=== PATIENT | male | born 1960 | race Caucasian/White ===

== ENCOUNTER 2017-02-10 15:19 | Emergency (ER) | payer MEDICAID, OTHER ==
[2017-02-10 15:37] VITALS: BP 124/91
[2017-02-10] MEDS ORDERED: Diphtheria,Pertussis(Acell),Tetanus Vaccine 0.5 ML SDV IM ONE (16:03)
[2017-02-10] MEDS ORDERED: Lidocaine 1% 20 ML MDV INJECT ONE (16:04)
[2017-02-10] MEDS ORDERED: Bacitracin Oint 1 GM U/D Packet TOP ONE (16:04)
--- NOTE | 2017-02-10 16:06 | EDM.PDOC ---
ED HPI GENERAL MEDICAL PROBLEM - General Chief Complaint: Laceration Stated Complaint: LT FINGERS CUT Time Seen by Provider: 02/10/17 16:05 Source of Information: Reports: Patient, Family History Limitations: Reports: No limitations - History of Present Illness INITIAL COMMENTS - FREE TEXT/NARRATIVE: pt was working with a table saw and lost control. Onset: today Duration: Minutes: Location: Reports: upper extremity, left Associated Symptoms: Reports: denies other symptoms Left Hand Pain Score (Numeric/FACES): 7 - Related Data Allergies Allergy/AdvReac Type Severity Reaction Status Date / Time azithromycin Allergy Rash Verified 02/10/17 15:47 [From Zithromax Z-Lior] Home Meds: Home Meds Losartan/Hydrochlorothiazide [Losartan-HCTZ 100-25 MG] 1 each PO DAILY 11/27/13 [History] Past Medical History Cardiovascular History: Reports: Arrhythmia, Hypertension Musculoskeletal History: Reports: Other (see below) Other Musculoskeletal History: torn ligaments bilateral ankles Oncologic (Cancer) History: Reports: Other (see below) Other Oncologic History: skin Dermatologic History: Reports: Other (see below) Other Dermatologic History: skin cancer - Infectious Disease History Infectious Disease History: Reports: Chicken pox, Measles, Mumps - Past Surgical History HEENT Surgical History: Reports: Tonsillectomy GI Surgical History: Reports: Appendectomy Dermatological Surgical History: Reports: Skin biopsy Social & Family History - Tobacco Use Smoking Status *Q: Never Smoker Second Hand Smoke Exposure: No - Caffeine Use Caffeine Use: Reports: Coffee, Soda - Alcohol Use Days Per Week of Alcohol Use: 0 - Recreational Drug Use Recreational Drug Use: No ED ROS GENERAL - Review of Systems Review Of Systems: See Below Constitutional: Reports: no symptoms HEENT: Reports: No symptoms Respiratory: Reports: No Symptoms Cardiovascular: Reports: No symptoms Endocrine: Reports: no symptoms GI/Abdominal: Reports: No symptoms : Reports: no symptoms Musculoskeletal: Reports: other (laceration of the index, middle and ring finger. ) Skin: Reports: no symptoms ED EXAM, SKIN/RASH Exam: See Below Exam Limited By: No limitations General Appearance: alert Extremities: other ( Pt was using a table saw and he ended up with cutting the finger nail of the index finger and a small abrasion. The middle finger he has a soperficial laceration over the dorsal aspect of the middle finger. This is 5 cm in length. This did not involve tendons. He had full range of motion of the finger. The finger nail was cut partially off. The index finger he had a 1 /2 inch laceration at the tip and part of the nail was cut off. ) Course - Vital Signs Last Recorded V/S: Last Vital Signs Temp 36.6 C 02/10/17 15:49 Pulse 64 02/10/17 15:49 Resp 16 02/10/17 15:49 BP 124/91 H 02/10/17 15:49 Pulse Ox 100 02/10/17 15:49 - Orders/Labs/Meds Orders: Active Orders 24 hr Category Date Time Status Vaccines to be Administered [RC] PER UNIT ROUTINE Care 02/10/17 16:03 Active Fingers Second Digit Lt F1 [CR] Stat Exams 02/10/17 16:02 Taken Meds: Medications Discontinued Medications Generic Name Dose Route Start Last Admin Trade Name Freq PRN Reason Stop Dose Admin Bacitracin 1 dose 02/10/17 16:04 02/10/17 16:19 Bacitracin Oint 1 Gm TOP 02/10/17 16:05 1 dose ONETIME ONE Administration Diphtheria/Tetanus/Acell Pertussis 0.5 ml 02/10/17 16:03 02/10/17 16:18 Adacel IM 02/10/17 16:04 0.5 ml .ONCE ONE Administration Lidocaine HCl 20 ml 02/10/17 16:04 02/10/17 16:19 Xylocaine 1% INJECT 02/10/17 16:05 20 ml ONETIME ONE Administration - Re-Assessments/Exams Free Text/Narrative Re-Assessment/Exam: 02/10/17 17:12 This area was cleansed well and infiltrated with 1% lidocaine. There was no stitches on the ring finger . On the middle finger part of the skin was removed. This was brought together as much as possible. The nail was trimmed. Onr he index finger the laceration at the tip was closed with 5-0 prolene The nail was also trimmed. Departure - Departure Time of Disposition: 17:15 Disposition: Home, Self-Care 01 Condition: fair Clinical Impression: Laceration of left middle finger, Laceration of left index finger - Discharge Information Referrals: Fuentes Perera MD [Primary Care Provider] - Forms: ED Department Discharge Care Plan Goals: leave dressing on until thur, appt with the surgeon to follow up on the wound, elevate the hand. no work for the next 2 days, norco 5/325 q6h prn for pain, appt with surgeon on . keflex 500mg tid sr in 8 days - My Orders Last 24 Hours: My Active Orders 02/10/17 16:02 Fingers Second Digit Lt F1 [CR] Stat 02/10/17 16:03 Vaccines to be Administered [RC] PER UNIT ROUTINE - Assessment/Plan Last 24 Hours: My Active Orders 02/10/17 16:02 Fingers Second Digit Lt F1 [CR] Stat 02/10/17 16:03 Vaccines to be Administered [RC] PER UNIT ROUTINE
--- NOTE | 2017-02-11 08:58 | CR ---
Left second finger There is a soft tissue injury at the nail. The underlying bones are intact. There is no evidence of fracture or foreign body. Impression: 1. Soft tissue laceration without fracture.
== END 2017-02-10 17:49 | disposition home or self-care (01) ==
LOC: JP.ED 15:19
DX: S61.211A Laceration without foreign body of left index finger without damage to nail, initial encounter (principal); S61.213A Laceration without foreign body of left middle finger without damage to nail, initial encounter; I10 Essential (primary) hypertension; Z23 Encounter for immunization; Z79.899 Other long term (current) drug therapy; Z90.49 Acquired absence of other specified parts of digestive tract; Z98.890 Other specified postprocedural states; Z88.1 Allergy status to other antibiotic agents; W27.0XXA Contact with workbench tool, initial encounter
CPT/HCPCS: 12001; 73140; 90471; 90715; 99284; A4217

== ENCOUNTER 2017-02-15 20:32 | Emergency (ER) | payer MEDICAID, OTHER ==
[2017-02-15 20:43] VITALS: BP 140/71
--- NOTE | 2017-02-15 20:55 | EDM.PDOC ---
ED HPI GENERAL MEDICAL PROBLEM - General Chief Complaint: Wound Recheck Stated Complaint: L HAND INFECTION Time Seen by Provider: 02/15/17 20:42 Source of Information: Reports: Patient History Limitations: Reports: No Limitations - History of Present Illness INITIAL COMMENTS - FREE TEXT/NARRATIVE: Patient presents tonight for wound recheck. He states, "it doesn't look right" . He denies in crease in pain or discomfort. 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 He had x-ray, wound closure with use of keflex per Dr. Desir. Tino reports taking antibiotic as directed without complication. He also reports he continues to work and covers the wounds with sutures in antibiotic ointment and a dressing for protection. ) - Related Data Allergies Allergy/AdvReac Type Severity Reaction Status Date / Time azithromycin Allergy Rash Verified 02/10/17 15:47 [From Zithromax Z-Lior] Home Meds: Home Meds Losartan/Hydrochlorothiazide [Losartan-HCTZ 100-25 MG] 1 each PO DAILY 11/27/13 [History] Past Medical History Cardiovascular History: Reports: Arrhythmia, Hypertension Musculoskeletal History: Reports: Other (See Below) Other Musculoskeletal History: torn ligaments bilateral ankles Oncologic (Cancer) History: Reports: Other (See Below) Other Oncologic History: skin Dermatologic History: Reports: Other (See Below) Other Dermatologic History: skin cancer - Infectious Disease History Infectious Disease History: Reports: Chicken Pox, Measles, Mumps - Past Surgical History HEENT Surgical History: Reports: Tonsillectomy GI Surgical History: Reports: Appendectomy Dermatological Surgical History: Reports: Skin Biopsy Social & Family History - Tobacco Use Smoking Status *Q: Never Smoker Second Hand Smoke Exposure: No - Caffeine Use Caffeine Use: Reports: None - Alcohol Use Days Per Week of Alcohol Use: 0 - Recreational Drug Use Recreational Drug Use: No ED ROS GENERAL - Review of Systems Review Of Systems: See Below Constitutional: Reports: No Symptoms HEENT: Reports: No Symptoms Respiratory: Reports: No Symptoms Cardiovascular: Reports: No Symptoms Musculoskeletal: Reports: Other (Healing wounds to left hand at 2nd and 3rd fingers.) Skin: Reports: Wound, Change in Color, Other (Patient reports "my fingers don't look right, its kind of white". ). Denies: Pruritis, Rash, Erythema Neurological: Reports: No Symptoms ED EXAM, SKIN/RASH Exam: See Below Exam Limited By: No Limitations General Appearance: Alert, WD/WN, No Apparent Distress Respiratory/Chest: No Respiratory Distress, No Accessory Muscle Use, Chest Non- Tender Cardiovascular: Normal Peripheral Pulses, Regular Rate, Rhythm, No Edema Peripheral Pulses: 2+: Radial (L), Radial (R) Extremities: Normal Inspection, Normal Range of Motion, Non-Tender, No Pedal Edema, Normal Capillary Refill Neurological: Alert, Oriented, CN II-XII Intact, Normal Cognition, Normal Gait, No Motor/Sensory Deficits Skin: Warm, Dry, No Rash, Wound/Incision, Other (maceration noted to edges of wounds, suture repair. No drainage, induration or fluctuation noted. ROM intact, sensation intact. ). No: Erythema, Increased Warmth, Rash Location, Skin: Upper Extremity, Left Characteristics: No: Vesicular, Erythematous, Necrotic Associated features: Tenderness. No: Warmth, Induration, Weeping Lymphatic: No Adenopathy Course - Vital Signs Last Recorded V/S: Last Vital Signs Temp 37.2 C 02/15/17 20:43 Pulse 77 02/15/17 20:43 Resp 16 02/15/17 20:43 BP 140/71 02/15/17 20:43 Pulse Ox 96 02/15/17 20:43 - Re-Assessments/Exams Free Text/Narrative Re-Assessment/Exam: 02/15/17 21:03 Wound check per myself and Dr. Restrepo. Patient reports large amount of antibiotic ointment use with dressing to keep from sticking and catching while he works. Departure - Departure Time of Disposition: 20:50 Disposition: Home, Self-Care 01 Condition: good Clinical Impression: Encounter for wound care - Discharge Information Instructions: Wound Care Referrals: Fuentes Perera MD [Primary Care Provider] - Percy Gerber [Consulting Physician] - Forms: ED Department Discharge Additional Instructions: Use less antibiotic ointment to laceration. Put thin layer of ointment to wounds once daily. Keep area clean and dry. Watch for signs and symptoms of infection or worsening. Keep follow up with Dr. Linda Gerber as scheduled.
== END 2017-02-15 21:07 | disposition home or self-care (01) ==
LOC: JP.ED 20:32
DX: S61.211D Laceration without foreign body of left index finger without damage to nail, subsequent encounter (principal); S61.213D Laceration without foreign body of left middle finger without damage to nail, subsequent encounter; I10 Essential (primary) hypertension; Z85.828 Personal history of other malignant neoplasm of skin; Z90.49 Acquired absence of other specified parts of digestive tract; Z98.890 Other specified postprocedural states; Z79.899 Other long term (current) drug therapy; Z88.1 Allergy status to other antibiotic agents
CPT/HCPCS: 99281; 99283

== ENCOUNTER 2017-07-25 07:02 | Day surgery (SDC) | payer SELFPAY ==
[~2017-07-25 07:02] MED LIST: Acetaminophen 500 MG Tab PO ONE; Bupivacaine 0.5% 50 ML MDV ONE; Celecoxib 200 MG Cap PO ONE; Dextrose 5%-Lactated Ringers 1,000 ML IV SCH; Lidocaine 1% with EPINEPHrine 1:100,000 50 ML MDV ONE; Midazolam 1 MG/ML 2 ML SDV ONE; Propofol 200 MG/20 ML SDV ONE; fentaNYL 100 MCG/2 ML SDV ONE
[2017-07-25] MEDS ORDERED: ceFAZolin 2 GM in Premix Bag 1 BAG IV ONE (08:30)
[2017-07-25] MEDS ORDERED: Neostigmine Methylsulfate 1 MG/ML 5 ML Syringe ONE (08:39)
[2017-07-25] MEDS ORDERED: Dexamethasone 4 MG/ML SDV ONE (08:39)
[2017-07-25] MEDS ORDERED: Rocuronium 50 MG/5 ML Vial ONE (08:39)
[2017-07-25] MEDS ORDERED: Ondansetron 4 MG/2 ML SDV ONE (08:39)
[2017-07-25] MEDS ORDERED: Succinylcholine 200 MG/10 ML MDV ONE (08:39)
[2017-07-25] MEDS ORDERED: Glycopyrrolate 0.2 MG/ML 5 ML MDV ONE (08:39)
[2017-07-25] MEDS ORDERED: fentaNYL 250 MCG/5 ML SDV ONE (08:40)
[2017-07-25] MEDS ORDERED: Bupivacaine 0.5%/EPINEPHrine 1:200,000 50 ML MDV ONE (09:15)
[2017-07-25] MEDS ORDERED: fentaNYL 100 MCG/2 ML SDV ONE (09:57)
[2017-07-25] MEDS ORDERED: Ketorolac 60 MG/2 ML SDV ONE (10:17)
[2017-07-25] MEDS ORDERED: Ondansetron 4 MG/2 ML SDV IVPUSH PRN (12:05)
[2017-07-25] MEDS: Acetaminophen/oxyCODONE 325-5 MG Tab PO PRN ×2 (12:10→16:52)
[2017-07-25] MEDS ORDERED: Dextrose 5%-Lactated Ringers 1,000 ML IV SCH (12:15)
[2017-07-25 14:45] VITALS: BP 139/79
[2017-07-25] MEDS ORDERED: Ibuprofen 600 MG Tab PO SCH (16:00)
--- NOTE | 2017-07-27 13:51 | OR ---
DATE OF PROCEDURE: 07/25/2017 PREOPERATIVE DIAGNOSIS: Bilateral inguinal hernias. POSTOPERATIVE DIAGNOSES: 1. Incarcerated left inguinal hernia. 2. Incarcerated right inguinal hernia. 3. Ilioinguinal nerves at risk for entrapment by scar and associated postoperative neuropathic pain. OPERATIVE PROCEDURES: 1. Open repair of incarcerated left inguinal hernia with mesh (61539). 2. Open repair of non-incarcerated right inguinal hernia with mesh ([id number]). 3. Bilateral division of ilioinguinal nerves (69097). ANESTHESIA: General. INDICATION FOR PROCEDURE: This is a 56-year-old male presenting with bilateral inguinal hernias, particularly on the right side, this has been increasingly symptomatic. Plan is to proceed with bilateral inguinal hernia repair with mesh plug technique. Potential risks of the procedure including bleeding, infection, injury to underlying viscera, problems with the hernias recurring or mesh becoming infected, as well as possible chronic pain following the hernia repair were all gone over, and the patient wishes to proceed. The issue of the ilioinguinal nerves becoming entrapped by scar associated with the repair and mesh placement were gone over and the fact that we generally will divide these to limit risk of postoperative neuropathic pain, resulting in a small area of anesthesia in the groin area was gone over and likewise the patient wishes to proceed. DETAILS OF PROCEDURE: The patient was taken to the operating room and placed in a supine position. After general endotracheal anesthesia was induced, the abdomen and groin areas were prepped and draped. Beginning on the right side, a standard right inguinal incision was made and carried down through the skin and subcutaneous tissue and through the external oblique aponeurosis. The bladder flaps were raised superiorly and inferiorly, and the cord structures were mobilized upward. The patient was noted to have a quite broad-based hernia here with a large indirect component and smaller direct component. Once the indirect component was dissected off the cord structures, this was turned inward and the transversalis fascia over the direct portion of the hernia was then incised. An extra-large mesh plug was placed into the direct defect and, at this point, affixed to the Tai ligament with titanium tacking screws and then to the underside of the conjoint tendon medially, superiorly, and laterally with horizontal mattress sutures of 0 Vicryl stitch. A medium mesh plug was then placed through the indirect defect, and this was fixed to the overlying conjoined tendon with the horizontal mattress sutures of 0 Vicryl stitch as well. This appeared to adequately occlude both sides of the herniation. The ilioinguinal nerve was running directly right where the flat portion of the mesh plug system will be placed, therefore, this was divided at the lateral aspect of the incision to minimize postoperative neuropathic pain. The flat portion of the mesh plug system was then placed across the inguinal floor, fixed to pubic tubercle with titanium tacking screw and then sutured lateral to the cord structures with a 3-0 Vicryl stitch. Over this, the external oblique aponeurosis approximated with a 4-0 Vicryl stitch as was the Carine's fascia, and the skin was closed with sharlene. Attention was then taken to the left side. A mirror-image type incision was then made and carried down through the skin and subcutaneous tissue and external oblique aponeurosis. Similar dissection was undertaken on this side. The left side actually had an incarcerated component to the hernia consisting of some omentum, which was densely adherent to the hernia sac. The latter was freed up. The hernia sac was dissected free and returned back to the intraperitoneal location. The hernia on this side was repaired with a single extra-large mesh plug. This was placed through the indirect defect and affixed to the Tai's ligament medially and inferiorly with titanium tacking screws and fixed to tendon medially, superiorly, and laterally with horizontal mattress sutures of 0 Vicryl stitch as well. Likewise, at that site the ilioinguinal nerve passed over the flat portion of the mesh plug system was then likewise placed over the inguinal floor and fixed to the pubic tubercle with a tacking screw and fixed laterally with 3-0 Vicryl stitch. Closure of the hernia was as per the right side and dressing was applied. The patient was taken to the recovery room in a satisfactory condition. There were no evident complications. Alfie Gerber MD /[id number]
== END 2017-07-25 17:25 | disposition home or self-care (01) ==
LOC: JP.SDS 07:02 → JP.MS 10:40 → JP.SDS 17:25
PROVIDERS: ATTEND Surgery
DX: K40.30 Unilateral inguinal hernia, with obstruction, without gangrene, not specified as recurrent (principal); K40.90 Unilateral inguinal hernia, without obstruction or gangrene, not specified as recurrent; G57.83 Other specified mononeuropathies of bilateral lower limbs; I10 Essential (primary) hypertension; Z88.1 Allergy status to other antibiotic agents; Z79.899 Other long term (current) drug therapy
CPT/HCPCS: 36415; 49505; 49507; 64772; 85027; A9270; C1781; J0330; J0690; J1100; J1885; J2250; J2405; J2704; J2710; J3010; J7042

== ENCOUNTER 2017-07-27 21:35 | Emergency (ER) | payer SELFPAY ==
[2017-07-27 21:56] VITALS: BP 124/73
--- NOTE | 2017-07-27 22:23 | EDM.PDOC ---
ED HPI GENERAL MEDICAL PROBLEM - General Chief Complaint: Gastrointestinal Problem Stated Complaint: SURGERY NO BOWEL MOVEMENTS Time Seen by Provider: 07/27/17 22:10 Source of Information: Reports: Patient, Family, RN Notes Reviewed History Limitations: Reports: No Limitations - History of Present Illness INITIAL COMMENTS - FREE TEXT/NARRATIVE: 56-year-old gentleman presents emergency department day complaint of abdominal distention, he is postop day 2 from bilateral hernia repair he has been using Percocet as needed for pain control however he is trying to wean himself off that he is not had a bowel movement since surgery he feels the urge but however is afraid to push secondary to increased pain in his pelvic region, he is passing gas Lower Abdominal Pain Score (Numeric/FACES): 7 - Related Data Allergies Allergy/AdvReac Type Severity Reaction Status Date / Time azithromycin Allergy Rash Verified 07/27/17 22:04 [From Zithromax Z-Lior] Home Meds: Home Meds Losartan/Hydrochlorothiazide [Losartan-HCTZ 100-25 MG] 1 each PO DAILY 11/27/13 [History] Acetaminophen [Tylenol Extra Strength] 1,000 mg PO ASDIRECTED 07/24/17 [History] Ibuprofen [Motrin] 600 mg PO ASDIRECTED PRN 07/24/17 [History] Acetaminophen/oxyCODONE [Percocet 325-5 MG] 1 - 2 each PO Q4H PRN #20 tab [Rx] Sennosides [Senna] 3 tab PO BID 07/27/17 [History] Past Medical History HEENT History: Reports: Impaired Vision Cardiovascular History: Reports: Arrhythmia, Hypertension Musculoskeletal History: Reports: Other (See Below) Other Musculoskeletal History: torn ligaments bilateral ankles Oncologic (Cancer) History: Reports: Other (See Below) Other Oncologic History: skin Dermatologic History: Reports: Other (See Below) Other Dermatologic History: skin cancer - Infectious Disease History Infectious Disease History: Reports: C-Difficile, Measles, Mumps - Past Surgical History HEENT Surgical History: Reports: Adenoidectomy, Tonsillectomy GI Surgical History: Reports: Appendectomy, Hernia, Abdominal Dermatological Surgical History: Reports: Skin Biopsy Social & Family History - Family History Family Medical History: Noncontributory - Tobacco Use Smoking Status *Q: Never Smoker Second Hand Smoke Exposure: No - Caffeine Use Caffeine Use: Reports: Coffee, Energy Drinks, Soda - Alcohol Use Days Per Week of Alcohol Use: 0 - Recreational Drug Use Recreational Drug Use: No ED ROS GENERAL - Review of Systems Review Of Systems: See Below Constitutional: Denies: Fever (mom), Chills HEENT: Reports: No Symptoms Respiratory: Reports: No Symptoms Cardiovascular: Reports: Dyspnea on Exertion GI/Abdominal: Reports: Abdominal Pain, Distension, Flatus. Denies: Nausea, Vomiting : Reports: No Symptoms Musculoskeletal: Reports: No Symptoms Skin: Reports: No Symptoms Neurological: Reports: No Symptoms ED EXAM, GI/ABD - Physical Exam Exam: See Below Exam Limited By: No Limitations General Appearance: Alert, WD/WN, No Apparent Distress Respiratory/Chest: No Respiratory Distress, Lungs Clear, Normal Breath Sounds, No Accessory Muscle Use Cardiovascular: Regular Rate, Rhythm, No Murmur GI/Abdominal Exam: Normal Bowel Sounds, Soft, Other (Distention, surgical wounds clean dry intact) Course - Vital Signs Last Recorded V/S: Last Vital Signs Temp 98.6 F 07/27/17 22:03 Pulse 84 07/27/17 22:03 Resp 20 07/27/17 22:03 BP 124/73 07/27/17 22:03 Pulse Ox 95 07/27/17 22:03 - Orders/Labs/Meds Orders: Active Orders 24 hr Category Date Time Status Abdomen 2V AP Flat Upright [CR] Stat Exams 07/27/17 22:20 Taken Labs: Laboratory Tests 07/27/17 07/27/17 Range/Units 22:30 22:30 WBC 8.6 (4.5-11.0) K/uL RBC 4.60 (4.30-5.90) M/uL Hgb 14.6 (12.0-15.0) g/dL Hct 42.2 (40.0-54.0) % MCV 92 (80-98) fL MCH 32 H (27-31) pg MCHC 35 (32-36) % Plt Count 318 (150-400) K/uL Neut % (Auto) 72 H (36-66) % Lymph % (Auto) 16 L (24-44) % [place] % (Auto) 10 H (2-6) % Eos % (Auto) 2 (2-4) % Baso % (Auto) 0 (0-1) % Sodium 138 L (140-148) mmol/L Potassium 3.7 (3.6-5.2) mmol/L Chloride 101 (100-108) mmol/L Carbon Dioxide 32 (21-32) mmol/L Anion Gap 8.7 (5.0-14.0) mmol/L BUN 11 (7-18) mg/dL Creatinine 0.9 (0.8-1.3) mg/dL Est Cr Clr Drug Dosing 98.20 mL/min Estimated GFR (MDRD) > 60 (>60) Glucose 103 (74-106) mg/dL Calcium 9.3 (8.5-10.1) mg/dL Total Bilirubin 0.6 (0.2-1.0) mg/dL AST 25 (15-37) U/L ALT 35 (12-78) U/L Alkaline Phosphatase 105 (46-116) U/L Total Protein 7.1 (6.4-8.2) g/dL Albumin 3.7 (3.4-5.0) g/dL Globulin 3.4 (2.3-3.5) g/dL Albumin/Globulin Ratio 1.1 L (1.2-2.2) Departure - Departure Time of Disposition: 23:40 Disposition: Home, Self-Care 01 Condition: Good Clinical Impression: Ileus, postoperative - Discharge Information Referrals: Fuentes Perera MD [Primary Care Provider] - Forms: ED Department Discharge Additional Instructions: Go back to clear liquids, try MiraLAX one capful per day until loose stools, try to use as few as narcotics as possible keep your regular follow-up appointment with general surgery - My Orders Last 24 Hours: My Active Orders 07/27/17 22:20 Abdomen 2V AP Flat Upright [CR] Stat - Assessment/Plan Last 24 Hours: My Active Orders 07/27/17 22:20 Abdomen 2V AP Flat Upright [CR] Stat Plan: Assessment Acuity = acute Site and laterality = ileus postop day 2 bilateral hernia repair Etiology = unclear etiology Manifestations = none Location of injury = Home Lab values = CBC, CMP unremarkable x-ray shows dilated loops of bowel consistent with ileus official read radiologist pending Plan Called discussed case with Dr. Gerber recommend try MiraLAX try and reduce the narcotics best possible and go back to clear liquids keep regular follow-up appointment with general surgery Patient was in agreement with the plan all questions were answered, they were instructed to return to the emergency department or call for worsening symptoms. This note was dictated using [employer] voice recognition software please call with any questions.
--- NOTE | 2017-07-28 09:43 | CR ---
Abdomen 2V AP Flat Upright INDICATION: Distention postop FINDINGS: Loops of minimally dilated small bowel with air-fluid levels. Moderate gas and stool in the colon. No evidence for free air. Findings most consistent with ileus.
== END 2017-07-27 23:56 | disposition home or self-care (01) ==
LOC: JP.ED 21:35
DX: K56.7 Ileus, unspecified (principal); Z79.899 Other long term (current) drug therapy
CPT/HCPCS: 36415; 74020; 74020-26; 80053; 85025; 99283; 99284

== ENCOUNTER 2021-03-22 17:15 | Emergency (ER) | payer MEDICAID ==
[2021-03-22] MEDS ORDERED: Sodium Chloride 0.9% 10 ML Syringe FLUSH PRN (17:29)
[2021-03-22] MEDS ORDERED: ceFAZolin 1 GM in Premix Bag 1 BAG IV ONE (17:31)
[2021-03-22] MEDS ORDERED: Morphine 4 MG/ML Syringe IVPUSH ONE ×2 (17:32→19:42)
[2021-03-22] MEDS ORDERED: Tetracaine HCl/PF 0.5% 4 ML Bottle EYERT ONE (17:34)
--- NOTE | 2021-03-22 18:00 | EDM.PDOC ---
ED HPI GENERAL MEDICAL PROBLEM - General Chief Complaint: Eye Problems Stated Complaint: RT EYE INJURY Time Seen by Provider: 03/22/21 17:30 Source of Information: Reports: Patient History Limitations: Reports: No Limitations - History of Present Illness INITIAL COMMENTS - FREE TEXT/NARRATIVE: Tino is a 60 year old male whom was brought to [place] ER by family due to right eye injury. Injury occurred 20 minutes before arrive while milking goat. Goat was on the lift and bucked resulting in head striking patient's right kunal- orbital area with horn and head. Patient is unsure if eye is injured and he has not tried to use with injured eye. brought him to ER for evaluation. Last tetanus was 2017 Right Eye Pain Score (Numeric/FACES): 5 - Related Data Allergies Allergy/AdvReac Type Severity Reaction Status Date / Time azithromycin Allergy Rash Verified 03/22/21 17:32 [From Zithromax Z-Lior] Home Meds: Home Meds Acetaminophen [Tylenol Extra Strength] 1,000 mg PO ASDIRECTED PRN 07/24/17 [History] Cyanocobalamin (Vitamin B-12) [Vitamin B-12] 1 cap PO DAILY 06/07/20 [History] Echinacea 250 mg PO DAILY 06/07/20 [History] Fish Oil/Borage/Flax/Om3,6,9 1 [[place] 3-6-9 Complex Softgel] 1 cap PO DAILY 06/07/20 [History] Glucosam/Chond/Collagen/Hyalur [Glucosamine Chondroitin] 2 cap PO DAILY 06/07/20 [History] Ibuprofen [Motrin] 600 mg PO QID PRN 06/07/20 [History] Multivitamin 1 tab PO DAILY 06/07/20 [History] Valsartan/Hydrochlorothiazide [Valsartan-Hctz 160-25 mg Tab] 1 tab PO DAILY 06/07/20 [History] Past Medical History HEENT History: Reports: Impaired Vision Cardiovascular History: Reports: Arrhythmia, Hypertension Respiratory History: Reports: Pneumonia, Recurrent Gastrointestinal History: Reports: GERD Musculoskeletal History: Reports: Other (See Below) Other Musculoskeletal History: torn ligaments bilateral ankles Neurological History: Reports: Migraines Oncologic (Cancer) History: Reports: Basal Cell Carcinoma, Other (See Below) Other Oncologic History: skin Dermatologic History: Reports: Other (See Below) Other Dermatologic History: skin cancer - Infectious Disease History Infectious Disease History: Reports: Chicken Pox, Measles, Mumps - Past Surgical History Head Surgeries/Procedures: Reports: None HEENT Surgical History: Reports: Adenoidectomy, Tonsillectomy GI Surgical History: Reports: Appendectomy, EGD, Hernia, Inguinal, Estrella Fundoplication Dermatological Surgical History: Reports: Skin Biopsy Social & Family History - Family History Family Medical History: No Pertinent Family History HEENT: Reports: Cataract, Glaucoma, Hearing Impairment, Impaired Vision Cardiac: Reports: Aneurysm, Blood Clots/VTE/DVT, MD Respiratory: Reports: Asthma, COPD Neurological: Reports: Dementia, Migraines Psychiatric: Reports: Anxiety Hematologic: Reports: Other (See Below) Other Hematologic Family History: Factor 5 Oncologic: Reports: Other (See Below) Other Oncologic Family History: testicular - Tobacco Use Tobacco Use Status *Q: Never Tobacco User - Caffeine Use Caffeine Use: Reports: Coffee, Soda Caffeine Use Comment: 8 cups/daily - Recreational Drug Use Recreational Drug Use: No ED ROS GENERAL - Review of Systems Review Of Systems: Comprehensive ROS is negative, except as noted in HPI. ED EXAM GENERAL W FULL EYE - Physical Exam Exam: See Below Exam Limited By: No Limitations General Appearance: Alert, WD/WN, No Apparent Distress, Moderate Distress Eye Exam: Right Eye: Abnormal EOM, Abnormal Pupil (small ), Bleeding (obvious laceration right upper eyelid full thickness with flap), Corneal Abrasion, Globe Laceration (nasal conjunctival laceration (globe spared) ), Periorbital Changes, Vision Changes, Left Eye: Normal Inspection Eyelids: Right: Normal Appearance (full thickness laceration ), Subcutaneous Emphysema (nasal area) Conjunctiva & Sclera: Right: Subconjuctival Hemorrhage Extraocular Movements: Bilateral: Intact Pupillary Reaction: Right: Sluggish Comments: numbness inferior orbital area (injury to inferior orbital nerve likely) Ears: Hearing Grossly Normal Nose: Normal Inspection Throat/Mouth: Normal Voice, No Airway Compromise Neck: Normal Inspection, Full Range of Motion Respiratory/Chest: No Respiratory Distress, Lungs Clear, Normal Breath Sounds Cardiovascular: Normal Peripheral Pulses, Regular Rate, Rhythm GI/Abdominal: Normal Bowel Sounds Back Exam: Normal Inspection, Full Range of Motion Extremities: Normal Inspection, Normal Range of Motion Neurological: Alert, Oriented, CN II-XII Intact, Normal Cognition Psychiatric: Normal Affect, Normal Mood Skin Exam: Warm, Dry, Intact, Normal Color, No Rash Course - Vital Signs Last Recorded V/S: Last Vital Signs Temp 36.6 C 03/22/21 17:31 Pulse 79 03/22/21 17:31 Resp 22 H 03/22/21 17:31 BP 173/87 H 03/22/21 17:31 Pulse Ox 100 03/22/21 17:31 - Orders/Labs/Meds Orders: Active Orders 24 hr Category Date Time Status Peripheral IV Care [RC] . DIRECTED Care 03/22/21 17:30 Active NPO Now [Nothing per Oral Now Diet] [DIET] Diet 03/23/21 Breakfast Active Max Facial Sinus wo Cont [CT] Stat Exams 03/22/21 17:33 Taken Sodium Chloride 0.9% [Normal Saline] 1,000 ml Med 03/22/21 19:00 Active IV ASDIRECTED Sodium Chloride 0.9% [Saline Flush] Med 03/22/21 17:29 Active 10 ml FLUSH ASDIRECTED PRN Peripheral IV Insertion Adult [OM.PC] Urgent Oth 03/22/21 17:29 Ordered Medication Orders Sodium Chloride (Normal Saline) 1,000 mls @ 500 mls/hr IV ASDIRECTED EMILY Sodium Chloride (Sodium Chloride 0.9% 10 Ml Syringe) 10 ml FLUSH ASDIRECTED PRN PRN Reason: Keep Vein Open Labs: Laboratory Tests 03/22/21 03/22/21 Range/Units 17:50 17:50 WBC 7.0 (4.5-11.0) K/uL RBC 4.45 (4.30-5.90) M/uL Hgb 14.0 (12.0-15.0) g/dL Hct 40.3 (40.0-54.0) % MCV 91 (80-98) fL MCH 32 H (27-31) pg MCHC 35 (32-36) % Plt Count 337 (150-400) K/uL Neut % (Auto) 53.9 (36-66) % Lymph % (Auto) 34.0 (24-44) % Andrews % (Auto) 8.7 H (2-6) % Eos % (Auto) 3.0 (2-4) % Baso % (Auto) 0.4 (0-1) % Sodium 142 (140-148) mmol/L Potassium 3.0 L (3.6-5.2) mmol/L Chloride 105 (100-108) mmol/L Carbon Dioxide 27 (21-32) mmol/L Anion Gap 13.0 (5.0-14.0) mmol/L BUN 14 D (7-18) mg/dL Creatinine 1.4 H D (0.8-1.3) mg/dL Est Cr Clr Drug Dosing 61.83 mL/min Estimated GFR (MDRD) 51 L (>60) Glucose 115 H (74-106) mg/dL Calcium 8.4 L (8.5-10.1) mg/dL Total Bilirubin 0.4 D (0.2-1.0) mg/dL AST 17 (15-37) U/L ALT 29 (12-78) U/L Alkaline Phosphatase 107 (46-116) U/L Total Protein 6.2 L (6.4-8.2) g/dL Albumin 3.5 (3.4-5.0) g/dL Globulin 2.7 (2.3-3.5) g/dL Albumin/Globulin Ratio 1.3 (1.2-2.2) Meds: Medications Generic Name Dose Route Start Last Admin Trade Name Freq PRN Reason Stop Dose Admin Sodium Chloride 1,000 mls @ 500 mls/hr 03/22/21 19:00 Normal Saline IV ASDIRECTED EMILY Sodium Chloride 10 ml 03/22/21 17:29 Sodium Chloride 0.9% 10 Ml Syringe FLUSH ASDIRECTED PRN Keep Vein Open Discontinued Medications Generic Name Dose Route Start Last Admin Trade Name Freq PRN Reason Stop Dose Admin Cefazolin Sodium Confirm 03/22/21 18:05 03/22/21 18:16 Cefazolin 1 Gm Vial Administered 03/22/21 18:06 Not Given Dose 1 gm .ROUTE .STK-MED ONE Cefazolin Sodium 1 gm/ Sodium 50 mls @ 100 mls/hr 03/22/21 18:15 03/22/21 18:16 Chloride IV 03/22/21 18:44 100 mls/hr ONETIME ONE Administration Sodium Chloride Confirm 03/22/21 18:05 03/22/21 18:21 Normal Saline Administered 03/22/21 18:06 Not Given Dose 50 mls @ as directed .ROUTE .STK-MED ONE Morphine Sulfate 4 mg 03/22/21 17:32 03/22/21 17:54 Morphine 4 Mg/Ml Syringe IVPUSH 03/22/21 17:33 4 mg ONETIME ONE Administration Tetracaine HCl 0 ml 03/22/21 17:34 03/22/21 18:07 Tetracaine Hcl/Pf 0.5% 4 Ml Bottle EYERT 03/22/21 17:35 2 drop ASDIRECTED ONE Administration - Re-Assessments/Exams Free Text/Narrative Re-Assessment/Exam: 03/22/21 Immediately after evaluation: IV access obtained and IV antibiotic was initiated Ancef in addition to Morphine 4mg IV for pain. Patient's tetanus to up to date 2016. 18:45 Updated patient and regarding blood test result. My impression regar ding initial evaluation that is globe is spared. CT results pending radiology reading. 19:10 phone call from Radiologist regarding CT results. CT Head no acute concerns. CT facial bones no acute fractures but obvious periorbital air and air noted posterior orbital area. 03/22/21 19:24 Called [place] regarding need for Eye Surgeon Evaluation. Spoke with Dr Stubbs regarding patient presentation and injuries which require Eye surgeon evaluation. Dr Stubbs requested patient remain NPO and present to [place] ER for assessment and surgical treatment this evening. Requested CT images on disc and radiology report in addition to images sent (transferred) to [facility] system. 03/22/21 19:43 Repeat dosing of Morphine and Reglan IV for headache and pain with prevention of nausea. IV access will be wrapped and left in place. Moist dressing with Tegaderm will be applied to right kunal orbital area (with occlusive dressing tegaderm). Departure - Departure Time of Disposition: 19:56 Disposition: DC/Tfer to Other 70 Clinical Impression: Right eyelid laceration, Puncture wound of right periorbital area - Discharge Information Referrals: Fuentes Perera MD [Primary Care Provider] - Forms: Interfacility Transfer EMTALA Additional Instructions: Nothing to Eat or Drink this evening. Go Directly to [facility] in [place] to see Dr Stubbs, Eye Surgeon to likely surgical evaluation and repair of kunal-orbtial area tonight. Ancef 1Gm was finished during ER visit. Repeat Morphine dose given before leaving department. Patient will be taken to [facility] ER for evaluation tonight. Sepsis Event Note (ED) - Evaluation Sepsis Screening Result: No Definite Risk - Focused Exam Vital Signs: Vital Signs Temp Pulse Resp BP Pulse Ox 03/22/21 17:31 36.6 C 79 22 H 173/87 H 100 03/22/21 17:28 36.6 C 79 22 H 173/87 H 100 - My Orders Last 24 Hours: My Active Orders 03/22/21 17:29 Sodium Chloride 0.9% [Saline Flush] 10 ml FLUSH ASDIRECTED PRN Peripheral IV Insertion Adult [OM.PC] Urgent 03/22/21 17:30 Peripheral IV Care [RC] . DIRECTED 03/22/21 17:33 Max Facial Sinus wo Cont [CT] Stat 03/22/21 19:00 Sodium Chloride 0.9% [Normal Saline] 1,000 ml IV ASDIRECTED 03/23/21 Breakfast NPO Now [Nothing per Oral Now Diet] [DIET] - Assessment/Plan Last 24 Hours: My Active Orders 03/22/21 17:29 Sodium Chloride 0.9% [Saline Flush] 10 ml FLUSH ASDIRECTED PRN Peripheral IV Insertion Adult [OM.PC] Urgent 03/22/21 17:30 Peripheral IV Care [RC] . DIRECTED 03/22/21 17:33 Max Facial Sinus wo Cont [CT] Stat 03/22/21 19:00 Sodium Chloride 0.9% [Normal Saline] 1,000 ml IV ASDIRECTED 03/23/21 Breakfast NPO Now [Nothing per Oral Now Diet] [DIET]
[2021-03-22] MEDS ORDERED: ceFAZolin 1 GM Vial ONE (18:05)
[2021-03-22] MEDS ORDERED: Sodium Chloride 0.9% 50 ML ONE (18:05)
[2021-03-22] MEDS ORDERED: ceFAZolin 1 GM in Sodium Chloride 0.9% 50 ML IV ONE (18:15)
[2021-03-22] MEDS ORDERED: Sodium Chloride 0.9% 1,000 ML IV SCH (19:00)
--- NOTE | 2021-03-22 19:12 | CRLCT ---
For Patients: As a result of the Century Cures Act, medical imaging exams and procedure reports are released immediately into your electronic medical record. You may view this report before your referring provider. If you have questions, please contact your health care provider. INDICATION: Goat injury to right eye TECHNIQUE: CT head without contrast. COMPARISON: None FINDINGS: CSF spaces: Within normal limits for age. Brain parenchyma: The london-white differentiation is normal. No sign of mass, hemorrhage, or midline shift. Skull base and calvarium: The visualized paranasal sinuses and mastoid air cells demonstrate no acute or significant findings. There is air in the right orbit. IMPRESSION: No acute intracranial abnormality. Air within the intraconal and extraconal spaces of the right orbit. Visualized portions of the globes appear intact. Please note that all CT scans at this facility use dose modulation, iterative reconstruction, and/or weight-based dosing when appropriate to reduce radiation dose to as low as reasonably achievable. Dictated by Radha Pollard MD @ 03/22/2021 7:12:[address] Radha Pollard @ Mar 22 2021 7:12PM
--- NOTE | 2021-03-22 19:16 | CRLCT ---
For Patients: As a result of the Cures Act, medical imaging exams and procedure reports are released immediately into your electronic medical record. You may view this report before your referring provider. If you have questions, please contact your health care provider. INDICATION: Goat injury to right eye TECHNIQUE: CT maxillofacial without contrast. COMPARISON: None FINDINGS: Facial bones: No fractures or bone lesions. Specifically the nasal bones, temporomandibular joints, maxilla and mandible appear intact. Orbits and globes: Mild right periorbital soft tissue swelling. The globe is intact. There is air around and posterior to the right globe. There is no significant intraorbital hemorrhage. Sinuses: No acute or significant findings. Soft tissues: Unremarkable. IMPRESSION: Air around and posterior to the right globe. No foreign body or significant intraorbital hemorrhage. The globe appears intact. No fracture. Findings discussed with RICHARD Majano at 7:10pm on 03/22/2021. Please note that all CT scans at this facility use dose modulation, iterative reconstruction, and/or weight-based dosing when appropriate to reduce radiation dose to as low as reasonably achievable. Dictated by Radha Pollard MD @ 03/22/2021 7:14:[address] Radha Pollard @ Mar 22 2021 7:14PM
[2021-03-22] MEDS ORDERED: Metoclopramide 10 MG/2 ML SDV IV PRN (19:42)
[2021-03-22 20:18] VITALS: BP 141/89; PULSE 66
== END 2021-03-22 20:15 | disposition other institution (70) ==
LOC: JP.ED 17:15
DX: S01.111A Laceration without foreign body of right eyelid and periocular area, initial encounter (principal); S01.83XA Puncture wound without foreign body of other part of head, initial encounter; Z88.1 Allergy status to other antibiotic agents; I10 Essential (primary) hypertension; Z79.899 Other long term (current) drug therapy; W22.8XXA Striking against or struck by other objects, initial encounter
CPT/HCPCS: 36415; 70450; 70486; 80053; 85025; 96365; 96375; 96376; 99284; J0690; J2270; J7030

== ENCOUNTER 2021-07-06 18:02 | Emergency (ER) | payer MEDICAID ==
[2021-07-06 18:15] VITALS: BP 144/93; PULSE 76
[2021-07-06] MEDS ORDERED: methylPREDNISolone Sodium Succinate 125 MG/2 ML SDV IVPUSH ONE (18:31)
--- NOTE | 2021-07-06 18:39 | EDM.PDOC ---
ED HPI GENERAL MEDICAL PROBLEM - General Chief Complaint: Allergic Reaction Stated Complaint: MULTIPLE WASP STINGS Time Seen by Provider: 07/06/21 18:20 Source of Information: Reports: Patient, Family History Limitations: Reports: No Limitations - History of Present Illness INITIAL COMMENTS - FREE TEXT/NARRATIVE: 60-year-old male who has been stung by bees in the past, has multiple wasp stings after moving some garbage that was in the ditch. He is for symptoms where his feet felt hot, then he felt like his heart was racing and then within an hour he developed a fairly widespread macular rash. His feet are itching but otherwise he has no shortness of breath, throat symptoms, and the rash elsewhere is really not pruritic. No nausea or vomiting. His gave him a large cup of children's Benadryl almost right after it happened. He no longer has palpitations and he feels actually fine. Onset: Sudden Duration: Hour(s): (1 hour ago) Location: Reports: Other (Rashes generalized, stinging and burning sensation in his feet) Quality: Reports: Burning Associated Symptoms: Reports: No Other Symptoms. Denies: Chest Pain, Cough, Fever/Chills, Malaise, Nausea/Vomiting, Shortness of Breath, Weakness - Related Data Allergies Allergy/AdvReac Type Severity Reaction Status Date / Time azithromycin Allergy Rash Verified 07/06/21 18:12 [From Zithromax Z-Lior] Home Meds: Home Meds Acetaminophen [Tylenol Extra Strength] 1,000 mg PO ASDIRECTED PRN 07/24/17 [History] Cyanocobalamin (Vitamin B-12) [Vitamin B-12] 1 cap PO DAILY 06/07/20 [History] Echinacea 250 mg PO DAILY 06/07/20 [History] Fish Oil/Borage/Flax/Om3,6,9 1 [[place] 3-6-9 Complex Softgel] 1 cap PO DAILY 06/07/20 [History] Glucosam/Chond/Collagen/Hyalur [Glucosamine Chondroitin] 2 cap PO DAILY 06/07/20 [History] Ibuprofen [Motrin] 600 mg PO QID PRN 06/07/20 [History] Multivitamin 1 tab PO DAILY 06/07/20 [History] Valsartan/Hydrochlorothiazide [Valsartan-Hctz 160-25 mg Tab] 1 tab PO DAILY 06/07/20 [History] Past Medical History HEENT History: Reports: Impaired Vision Cardiovascular History: Reports: Arrhythmia, Hypertension Respiratory History: Reports: Pneumonia, Recurrent Gastrointestinal History: Reports: GERD Musculoskeletal History: Reports: Other (See Below) Other Musculoskeletal History: torn ligaments bilateral ankles Neurological History: Reports: Migraines Oncologic (Cancer) History: Reports: Basal Cell Carcinoma, Other (See Below) Other Oncologic History: skin Dermatologic History: Reports: Other (See Below) Other Dermatologic History: skin cancer - Infectious Disease History Infectious Disease History: Reports: Chicken Pox, Measles, Mumps - Past Surgical History Head Surgeries/Procedures: Reports: None HEENT Surgical History: Reports: Adenoidectomy, Tonsillectomy Cardiovascular Surgical History: Reports: None Respiratory Surgical History: Reports: None GI Surgical History: Reports: Appendectomy, EGD, Hernia, Inguinal, Estrella Fundoplication Neurological Surgical History: Reports: None Musculoskeletal Surgical History: Reports: None Oncologic Surgical History: Reports: None Dermatological Surgical History: Reports: Skin Biopsy Social & Family History - Family History Family Medical History: No Pertinent Family History HEENT: Reports: Cataract, Glaucoma, Hearing Impairment, Impaired Vision Cardiac: Reports: Aneurysm, Blood Clots/VTE/DVT, GA Respiratory: Reports: Asthma, COPD Neurological: Reports: Dementia, Migraines Psychiatric: Reports: Anxiety Hematologic: Reports: Other (See Below) Other Hematologic Family History: Factor 5 Oncologic: Reports: Other (See Below) Other Oncologic Family History: testicular - Tobacco Use Tobacco Use Status *Q: Former Tobacco User Used Tobacco, but Quit: Yes Month/Year Tobacco Last Used: 2009 - Caffeine Use Caffeine Use: Reports: Coffee, Energy Drinks, Soda Caffeine Use Comment: 8 cups/daily - Recreational Drug Use Recreational Drug Use: No ED ROS ALLERGIC REACTION - Review of Systems Review Of Systems: See Below Constitutional: Denies: Fever, Chills, Malaise HEENT: Denies: Throat Pain Respiratory: Denies: Shortness of Breath, Wheezing, Cough Cardiovascular: Reports: Palpitations (Had some palpitations initially, felt like his heart was pounding but that is resolved). Denies: Chest Pain GI/Abdominal: Denies: Nausea, Vomiting : Reports: No Symptoms Neurological: Denies: Dizziness, Headache Psychiatric: Reports: No Symptoms ED EXAM GENERAL NO PERIP PULSE - Physical Exam Exam: See Below Exam Limited By: No Limitations General Appearance: Alert, No Apparent Distress Eye Exam: Bilateral Eye: Normal Inspection Head: Atraumatic Neck: Supple, Non-Tender Respiratory/Chest: Lungs Clear Cardiovascular: Regular Rate, Rhythm GI/Abdominal: Soft, Non-Tender Extremities: Other (Widespread macular erythematous rash, blanching, no vesicles) Neurological: Alert, Oriented, No Motor/Sensory Deficits Psychiatric: Normal Affect, Normal Mood Course - Vital Signs Last Recorded V/S: Last Vital Signs Temp 97.8 F 07/06/21 18:17 Pulse 76 07/06/21 18:17 Resp 14 07/06/21 18:17 BP 144/93 H 07/06/21 18:17 Pulse Ox 95 07/06/21 18:17 - Orders/Labs/Meds Meds: Medications Discontinued Medications Generic Name Dose Route Start Last Admin Trade Name Freq PRN Reason Stop Dose Admin Methylprednisolone Sodium Succinate 125 mg 07/06/21 18:31 07/06/21 18:40 Methylprednisolone Sodium Succinate 125 Mg/2 Ml Sdv IVPUSH 07/06/21 18:32 125 mg ONETIME ONE Administration - Re-Assessments/Exams Free Text/Narrative Re-Assessment/Exam: 07/06/21 18:38 Patient is already had Benadryl, and IV was started he was given 125 mg of IV Solu-Medrol. He is very stable, he wanted to be discharged as soon as possible. 07/06/21 18:54 Patient remained stable for the next 35 to 40 minutes, no respiratory symptoms and rash started to resolve. He will be discharged and encouraged to continue with Benadryl as needed, and was written a prescription for an adult EpiPen that he can fill in the next few days. Departure - Departure Time of Disposition: 19:11 Disposition: Home, Self-Care 01 Clinical Impression: Allergic reaction to bee sting - Discharge Information Instructions: Bee, Wasp, or Hornet Sting, Adult Referrals: Fuentes Perera MD [Primary Care Provider] - Forms: ED Department Discharge Care Plan Goals: Continue with 50 mg of Benadryl every 4 hours as needed for rash or itching, return anytime if you develop respiratory difficulties. Fill your prescription for the EpiPen in the next few days, and inform your primary provider next week of your bee sting allergy. Sepsis Event Note (ED) - Focused Exam Vital Signs: Vital Signs Temp Pulse Resp BP Pulse Ox 07/06/21 18:17 97.8 F 76 14 144/93 H 95 07/06/21 18:13 97.8 F 76 14 144/93 H 95
== END 2021-07-06 19:12 | disposition home or self-care (01) ==
LOC: JP.ED 18:02
DX: T63.441A Toxic effect of venom of bees, accidental (unintentional), initial encounter (principal); I10 Essential (primary) hypertension; Z87.891 Personal history of nicotine dependence; Z88.1 Allergy status to other antibiotic agents; Z79.899 Other long term (current) drug therapy
CPT/HCPCS: 96374; 99282; J2930

== ENCOUNTER 2022-05-07 11:36 | Emergency (ER) | payer MEDICAID ==
[2022-05-07 11:46] VITALS: BP 173/98; PULSE 68
[2022-05-07 12:21] LABS: TROPONIN I HIGH SENSITIVITY 9.1 pg/mL (<=60.3)
== END 2022-05-07 13:31 | disposition home or self-care (01) ==
LOC: JP.ED 11:36
DX: R07.89 Other chest pain (principal); I10 Essential (primary) hypertension; K21.9 Gastro-esophageal reflux disease without esophagitis; Z88.1 Allergy status to other antibiotic agents; Z91.030 Bee allergy status; Z87.891 Personal history of nicotine dependence; Z20.822 Contact with and (suspected) exposure to COVID-19
CPT/HCPCS: 36415; 80048; 84484; 85025; 93005; 99285; U0002

== ENCOUNTER 2023-11-14 20:53 | Emergency (ER) | payer MEDICARE, MEDICAID ==
[2023-11-14 21:32] VITALS: BP 128/85; PULSE 64
[2023-11-14] MEDS: Ketorolac 30 MG/ML SDV IM ONE (23:15)
[2023-11-14] MEDS: tiZANidine 2 MG Tab PO STA (23:15)
== END 2023-11-14 23:41 | disposition home or self-care (01) ==
LOC: JP.ED 20:53
DX: M54.32 Sciatica, left side (principal); I10 Essential (primary) hypertension; Z88.1 Allergy status to other antibiotic agents; Z91.030 Bee allergy status
CPT/HCPCS: 73502; 96372; 99283; A9270; J1885

== ENCOUNTER 2024-04-30 09:01 | Emergency (ER) | payer MEDICAID, MEDICARE ==
[2024-04-30 09:34] LABS: BASOPHILS ABSOLUTE AUTO 0.06 K/uL (0.00-0.10); EOSINOPHILS ABSOLUTE AUTO 0.22 K/uL (0.00-0.40); EOSINOPHILS PERCENT AUTO 3.7 % (0.0-5.4); HEMATOCRIT 42.2 % (38.4-49.7); HEMOGLOBIN 15.4 g/dL (12.9-16.9); IMMATURE GRAN PERCENT AUTO 0.2 % (0.0-0.7); LYMPHOCYTES ABSOLUTE AUTO 1.73 K/uL (0.8-3.3); LYMPHOCYTES PERCENT AUTO 29.2 % (11.4-47.7); MEAN CORPUSCULAR HEMOGLOBIN 32.8 pg (31.6-35.5); MEAN CORPUSCULAR HGB CONC 36.5 g/dL (31.6-35.5); MEAN CORPUSCULAR VOLUME 89.8 fL (81.4-99.0); MONOCYTES ABSOLUTE AUTO 0.59 K/uL (0.20-0.90); MONOCYTES PERCENT AUTO 9.9 % (3.3-12.6); NEUTROPHILS ABSOLUTE AUTO 3.32 K/uL (1.0-7.6); PLATELET COUNT,PLT 306 K/uL (130-375); WHITE BLOOD CELL COUNT,WBC 5.9 K/uL (3.2-11.0)
[2024-04-30 09:37] LABS: BICARBONATE,VENOUS 28.4 mmol/L; CARBOXYHEMOGLOBIN 1.8 % (0.0-1.6); METHEMOGLOBIN 0.9 %; O2 SATURATION VENOUS 59.2; OXYHEMOGLOBIN 57.6 %; PCO2 VENOUS 43.3 mm/Hg; PH,VENOUS 7.433 (7.350-7.450); TOTAL HEMOGLOBIN 15.6 g/dL (13.5-18.0)
[2024-04-30 09:40] LABS: APPEARANCE,URINE CLEAR (CLEAR); BILIRUBIN,URINE NEGATIVE (NEGATIVE); COLOR,URINE YELLOW (YELLOW); GLUCOSE,URINE NEGATIVE (NEGATIVE); IMMATURE GRAN ABSOLUTE AUTO 0.01 K/uL (0.00-0.23); KETONES,URINE NEGATIVE (NEGATIVE); LEUKOCYTE ESTERASE,URINE NEGATIVE (NEGATIVE); NITRITE,URINE NEGATIVE (NEGATIVE); OCCULT BLOOD,URINE NEGATIVE (NEGATIVE); PROTEIN,URINE NEGATIVE (NEGATIVE); UROBILINOGEN,URINE 0.2 EU/dL (0.2-1.0)
[2024-04-30 09:40] LABS: PO2 VENOUS 33.2 mm/Hg
[2024-04-30 09:45] LABS: PROTHROMBIN TIME 10.4 sec (9.2-10.6)
[2024-04-30 09:48] LABS: AMORPHOUS SEDIMENT,URINE NOT SEEN; BACTERIA,URINE NOT SEEN; EPITHELIAL CELLS,URINE NOT SEEN; MUCUS,URINE NOT SEEN; RBC,URINE 0-5 (0-5); WBC,URINE 0-5 (0-5)
[2024-04-30 09:55] LABS: A/G RATIO 1.1 (1.2-2.2); ALANINE AMINOTRANSFERASE,ALT 31 U/L (12-78); ALBUMIN 3.6 g/dL (3.4-5.0); ALKALINE PHOSPHATASE 123 U/L (46-116); ANION GAP 9.1 mmol/L (5.0-14.0); ASPARTATE AMNIOTRANSFERASE,AST 21 U/L (15-37); BILIRUBIN TOTAL 0.6 mg/dL (0.2-1.0); BLOOD UREA NITROGEN,BUN 16 mg/dL (7-18); CARBON DIOXIDE,CO2 29 mmol/L (21-32); CHLORIDE,CL 105 mmol/L (100-108); EST CRCL DRUG DOSING (CG) 78.44 mL/min; ESTIMATED GFR 84 mL/min (>60); GLUCOSE RANDOM 81 mg/dL (74-106); POTASSIUM,K 3.8 mmol/L (3.6-5.2); PRO B-TYPE NATRIUR PEPT,BNPPRO 62 pg/mL (5-125); PROTEIN TOTAL,TP 6.8 g/dL (6.4-8.2); SODIUM,NA 143 mmol/L (140-148)
[2024-04-30] MEDS ORDERED: Metoprolol Tartrate 5 MG in Sodium Chloride 0.9% 50 ML IV ONE (10:09)
[2024-04-30] MEDS: Metoprolol Tartrate 5 MG/5 ML SDV IVPUSH ONE (10:23)
[2024-04-30] MEDS: Aspirin 81 MG Tab.Chew PO ONE (10:25)
[2024-04-30 10:38] LABS: CORONAVIRUS COVID-19 NAA NEGATIVE (NEGATIVE); INFLUENZA A NAA NEGATIVE (NEGATIVE); INFLUENZA B NAA NEGATIVE (NEGATIVE); RESPIRATORY SYNCYTIAL VIR NAA NEGATIVE (NEGATIVE)
[2024-04-30 11:37] VITALS: BP 125/82
[2024-04-30] MEDS: Metoprolol Succinate 25 MG Tab.ER PO ONE (11:41)
[2024-04-30 11:42] VITALS: PULSE 63
== END 2024-04-30 11:48 | disposition home or self-care (01) ==
LOC: JP.ED 09:01
DX: I47.10 Supraventricular tachycardia, unspecified (principal); I10 Essential (primary) hypertension; Z90.49 Acquired absence of other specified parts of digestive tract; Z79.899 Other long term (current) drug therapy; Z91.030 Bee allergy status; Z88.1 Allergy status to other antibiotic agents
CPT/HCPCS: 0241U; 36415; 71045; 80053; 81001; 82803; 83605; 83880; 84145; 84484; 85025; 85379; 85610; 93005; 96374; 99285; A9270; J3490

== ENCOUNTER 2024-05-03 08:53 | Emergency (ER) | payer MEDICARE ==
[2024-05-03 09:20] LABS: BASOPHILS ABSOLUTE AUTO 0.08 K/uL (0.00-0.10); BASOPHILS PERCENT AUTO 1.3 % (0.1-1.3); EOSINOPHILS ABSOLUTE AUTO 0.22 K/uL (0.00-0.40); EOSINOPHILS PERCENT AUTO 3.6 % (0.0-5.4); HEMOGLOBIN 15.3 g/dL (12.9-16.9); IMMATURE GRAN PERCENT AUTO 0.3 % (0.0-0.7); LYMPHOCYTES ABSOLUTE AUTO 1.55 K/uL (0.8-3.3); LYMPHOCYTES PERCENT AUTO 25.2 % (11.4-47.7); MEAN CORPUSCULAR HEMOGLOBIN 31.9 pg (31.6-35.5); MEAN CORPUSCULAR HGB CONC 35.6 g/dL (31.6-35.5); MEAN CORPUSCULAR VOLUME 89.8 fL (81.4-99.0); MONOCYTES ABSOLUTE AUTO 0.67 K/uL (0.20-0.90); MONOCYTES PERCENT AUTO 10.9 % (3.3-12.6); NEUTROPHILS ABSOLUTE AUTO 3.61 K/uL (1.0-7.6); NEUTROPHILS PERCENT AUTO 58.7 % (40.0-78.1); PLATELET COUNT,PLT 306 K/uL (130-375); RED BLOOD CELL COUNT 4.79 M/uL (4.14-5.76); WHITE BLOOD CELL COUNT,WBC 6.2 K/uL (3.2-11.0)
[2024-05-03 09:26] LABS: ANION GAP 8.7 mmol/L (5.0-14.0); BLOOD UREA NITROGEN,BUN 16 mg/dL (7-18); CALCIUM 8.9 mg/dL (8.5-10.1); CARBON DIOXIDE,CO2 28 mmol/L (21-32); CHLORIDE,CL 103 mmol/L (100-108); CREATININE 1.1 mg/dL (0.8-1.3); ESTIMATED GFR 75 mL/min (>60); GLUCOSE RANDOM 88 mg/dL (74-106); POTASSIUM,K 4.1 mmol/L (3.6-5.2); SODIUM,NA 140 mmol/L (140-148)
[2024-05-03 09:27] LABS: IMMATURE GRAN ABSOLUTE AUTO 0.02 K/uL (0.00-0.23)
[2024-05-03 10:49] VITALS: BP 134/77; PULSE 65
== END 2024-05-03 10:03 | disposition home or self-care (01) ==
LOC: JP.ED 08:53
DX: R07.89 Other chest pain (principal); I10 Essential (primary) hypertension; Z90.49 Acquired absence of other specified parts of digestive tract; Z79.899 Other long term (current) drug therapy; Z88.1 Allergy status to other antibiotic agents; Z91.030 Bee allergy status
CPT/HCPCS: 36415; 80048; 84484; 85025; 93005; 99285

== ENCOUNTER 2024-09-27 12:55 | Emergency (ER) | payer MEDICARE ==
[2024-09-27 13:43] LABS: BASOPHILS ABSOLUTE AUTO 0.06 K/uL (0.00-0.10); BASOPHILS PERCENT AUTO 0.7 % (0.1-1.3); EOSINOPHILS ABSOLUTE AUTO 0.12 K/uL (0.00-0.40); EOSINOPHILS PERCENT AUTO 1.3 % (0.0-5.4); HEMATOCRIT 45.4 % (38.4-49.7); HEMOGLOBIN 16.5 g/dL (12.9-16.9); IMMATURE GRAN ABSOLUTE AUTO 0.04 K/uL (0.00-0.23); IMMATURE GRAN PERCENT AUTO 0.4 % (0.0-0.7); LYMPHOCYTES ABSOLUTE AUTO 1.66 K/uL (0.8-3.3); LYMPHOCYTES PERCENT AUTO 18.1 % (11.4-47.7); MEAN CORPUSCULAR HEMOGLOBIN 32.4 pg (31.6-35.5); MEAN CORPUSCULAR HGB CONC 36.3 g/dL (31.6-35.5); MEAN CORPUSCULAR VOLUME 89.2 fL (81.4-99.0); MONOCYTES ABSOLUTE AUTO 0.58 K/uL (0.20-0.90); MONOCYTES PERCENT AUTO 6.3 % (3.3-12.6); NEUTROPHILS ABSOLUTE AUTO 6.72 K/uL (1.0-7.6); NEUTROPHILS PERCENT AUTO 73.2 % (40.0-78.1); PLATELET COUNT,PLT 331 K/uL (130-375); RED BLOOD CELL COUNT 5.09 M/uL (4.14-5.76); WHITE BLOOD CELL COUNT,WBC 9.2 K/uL (3.2-11.0)
[2024-09-27] MEDS: Sodium Chloride 0.9% 500 ML IV ONE (13:43)
[2024-09-27] MEDS: Aspirin 81 MG Tab.Chew PO ONE (13:43)
[2024-09-27] MEDS: Metoprolol Tartrate 5 MG/5 ML SDV IVPUSH ONE (13:43)
[2024-09-27 14:14] LABS: A/G RATIO 1.1 (1.2-2.2); ALANINE AMINOTRANSFERASE,ALT 28 U/L (12-78); ALBUMIN 3.6 g/dL (3.4-5.0); ALKALINE PHOSPHATASE 123 U/L (46-116); ASPARTATE AMNIOTRANSFERASE,AST 13 U/L (15-37); BILIRUBIN TOTAL 0.4 mg/dL (0.2-1.0); BLOOD UREA NITROGEN,BUN 18 mg/dL (7-18); CALCIUM 8.8 mg/dL (8.5-10.1); CARBON DIOXIDE,CO2 26 mmol/L (21-32); CHLORIDE,CL 105 mmol/L (100-108); EST CRCL DRUG DOSING (CG) 78.44 mL/min; ESTIMATED GFR 84 mL/min (>60); GLUCOSE RANDOM 107 mg/dL (74-106); POTASSIUM,K 3.5 mmol/L (3.6-5.2); PROTEIN TOTAL,TP 6.9 g/dL (6.4-8.2); SODIUM,NA 143 mmol/L (140-148); TROPONIN I HIGH SENSITIVITY 6.9 pg/mL (<=60.3)
[2024-09-27 14:15] LABS: ANION GAP 15.5 mmol/L (5.0-14.0)
[2024-09-27 15:08] VITALS: BP 130/85; PULSE 69
== END 2024-09-27 15:08 | disposition home or self-care (01) ==
LOC: JP.ED 12:55
DX: R00.0 Tachycardia, unspecified (principal); I10 Essential (primary) hypertension; Z90.49 Acquired absence of other specified parts of digestive tract; Z88.1 Allergy status to other antibiotic agents; Z91.030 Bee allergy status; Z79.899 Other long term (current) drug therapy
CPT/HCPCS: 36415; 80053; 80307; 84443; 84484; 85025; 85379; 93005; 96374; 99285; A9270; J3490; J7030